=== PATIENT | female | born 1955 | race Caucasian/White ===

== ENCOUNTER → 2023-11-29 12:34 | Outpatient (CLI) | payer MEDICARE, OTHER, SELFPAY ==
--- NOTE | 2023-11-29 12:38 | DI.NM.S_ITS ---
PROCEDURE: NM LILY PERF SPECT R&S PHARM Rest and pharmacological stress myocardial perfusion SPECT with gated imaging and ejection fraction RADIOPHARMACEUTICAL: 26.5 mCi Tc-99m tetrafosmin IV at rest and 26.7 mCi Tc-99m tetrafosmin IV at peak effect of pharmacological stress. Sff-jhn-wcrbwfyx was performed. INDICATIONS: Bradycardia, unspecified TECHNIQUE: Radiopharmaceutical was injected at peak stress test, and also at rest. SPECT images were obtained. SPECT myocardial perfusion images were displayed in short axis, horizontal long axis, and vertical long axis views. Gated images were reviewed using Work4 software. COMPARISON: None. CARDIAC STRESS: A pharmacologic stress test was performed under the supervision of an attending staff, using an infusion of regadenoson 0.4 mg IV. Hemodynamic data: There is normal blood pressure and heart rate response to pharmacologic stress. Symptoms: The patient denied anginal chest pain. EKG: No diagnostic changes of ischemia; no ectopy. FINDINGS: Raw data: There is good myocardial uptake of radiotracer. No significant motion artifacts. Huww-gd-zihdo ratio is 0.46 (normal is less than 0.38 for tetrafosmin tracer). Left ventricle function: Gated images demonstrate normal left ventricular wall thickening. No segmental wall motion abnormalities. No transient ischemic dilation; TID is 1.09 (normal less than 1.3). Left ventricle resting end diastolic volume is 106 mL. Left ventricle stress ejection fraction is 74%; normal range is above 45%. Myocardial perfusion: There is normal distribution of activity in the right and left ventricular myocardium. No fixed or reversible perfusion defects. IMPRESSION: Low risk study. No evidence of pharmacologic induced ischemia or scar. Normal LV size and function. Dictated by: Tessa Fisher D.O. on 11/30/2023 at 16:40 Approved by: Tessa Fisher D.O. on 11/30/2023 at 16:43
--- NOTE | 2023-11-29 12:38 | DI.ECHO.S_ITS ---
[facility]---------+ [facility] +---------+ : : [address] : [place] : : : : [id number] : : : : Phone: [phone]---------+ Echocardiogram Report + + :Name: YOSEPH HAGER Study Date: 11/29/2023 Height: 64 in : :[facility] ReadingLocation: Weight: 199 lb : : Gender: Female BSA: 2.0 m2 : :: 1955 Age: 67 yrs BP: 171/84 mmHg: :Reason For Study: Bradycardia : : Performed By: Quiana Alberto : :Referring: KRISTEN FAUSTIN C : + + Interpretation Summary The ejection fraction is estimated to be 60-65%. Diastolic parameters suggest probable normal left ventricular diastolic function and normal filling pressures. The right ventricle grossly appears normal in size with probable normal systolic function. The right ventricular systolic pressure is estimated to be at least 27 mmHg based on an estimated right atrial pressure of 3 mm Hg. No significant valvular abnormality. Procedure: A two-dimensional transthoracic echocardiogram with color flow and Doppler was performed. The study quality was technically adequate. There is no prior echocardiogram noted for this patient. The heart rate ranged between 487-51 bpm during the study. Left Ventricle: The left ventricle is normal in size and wall thickness. The ejection fraction is estimated to be 60-65%. There are no obvious focal wall motion abnormalities noted but poor endocardial definition reduces the sensitivity for the detection of such. Diastolic parameters suggest probable normal left ventricular diastolic function and normal filling pressures. Right Ventricle: The right ventricle grossly appears normal in size with probable normal systolic function. Atria: Borderline left atrial enlargement. Right atrial size is normal. The interatrial septum grossly appears intact with no obvious evidence for an atrial septal defect. Mitral Valve: The mitral valve is normal in structure and function. There is no mitral regurgitation noted. Aortic Valve: The aortic valve opens well. There is no aortic valve stenosis. No aortic regurgitation is present. Tricuspid Valve: The tricuspid valve leaflets are thin and pliable. The tricuspid valve leaflets are thickened and/or calcified, but open well. No tricuspid regurgitation. The right ventricular systolic pressure is estimated to be at least 27 mmHg based on an estimated right atrial pressure of 3 mm Hg. Pulmonic Valve: The pulmonic valve is not well seen, but is grossly normal. There is a trace or physiologic amount of pulmonic regurgitation. Great Vessels: The aortic root is normal size. The ascending aorta is normal in size. The aortic arch is normal in size. The IVC is of normal diameter and collapses greater than 50% with a sniff. This suggests a low right atrial pressure of 3 mm Hg. Pericardium/ Pleura There is no pericardial effusion. There is no pleural effusion. MMode/2D Measurements & Calculations LVIDd: 5.2 cm LVOT diam: 2.0 cm LVIDs: 3.7 cm Ao root diam: 3.3 cm FS: 29.2 % asc Aorta Diam: 3.3 cm EPSS: 0.48 cm Ao Arch Diam (Prox Trans): 2.6 cm IVSd: 0.93 cm LVPWd: 0.80 cm LV sims. diameter/BSA (cm/m^2): 2.7 LV sys. diameter/BSA (cm/m^2): 1.9 LA A2 area: 22.6 cm2 RA long axis: 5.3 cm LA A4 area: 19.2 cm2 RA area: 19.7 cm2 LA length (vol): 5.2 cm RA vol: 61.8 ml LA vol: 71.0 ml RA : 31.6 ml/m2 LA vol index: 36.3 ml/m2 IVC diam: 1.6 cm RVD1 (basal): 2.1 cm Doppler Measurements & Calculations Ao V2 max: 137.2 cm/sec LVOT Max Luis: 84.9 cm/sec Ao V2 mean: 101.3 cm/sec LV V1 max P.9 mmHg Ao max P.5 mmHg LV V1 VTI: 22.5 cm Ao mean P.5 mmHg DEAN(I,D): 2.0 cm2 Ao V2 VTI: 36.4 cm DEAN(V,D): 2.0 cm2 sev ratio: 0.62 DEAN indexed to BSA (cm^2/m^2): 1.0 MV E max luis: 83.1 cm/sec TR max luis: 245.7 cm/sec MV A max luis: 83.1 cm/sec TR max P.1 mmHg MV E/A: 1.0 PA V2 max: 75.1 cm/sec Med Peak E' Luis: 6.5 cm/sec PA V2 mean: 54.8 cm/sec E/E' med: 12.7 PA mean P.3 mmHg Lat Peak E' Luis: 7.6 cm/sec PA pr(Accel): -16.9 mmHg E/E' lat: 11.0 E/e' average: 11.9 MV dec time: 0.24 sec SV(LVOT): 73.4 ml Reading Physician:JAI
== END ==
PROVIDERS: Referring Provider Physician Assistant; Visit Provider Physician Assistant
DX: R00.1 Bradycardia, unspecified (principal); R94.31 Abnormal electrocardiogram [ECG] [EKG]; M17.11 Unilateral primary osteoarthritis, right knee; Z82.49 Family history of ischemic heart disease and other diseases of the circulatory system
CPT/HCPCS: 78452; 93017; 93306; A9502; J2785

== ENCOUNTER → 2025-03-03 12:58 | Outpatient (CLI) | payer MEDICARE, OTHER, SELFPAY ==
--- NOTE | 2025-03-03 13:00 | DI.MG.S_ITS ---
MM screening mammo BI: 03/03/2025. BI-RADS: 1 CLINICAL: 69-year old female for bilateral screening mammogram. Tyrer-Cuzick lifetime risk of 6.8%. No personal or first-degree family history of breast cancer. PRIOR EXAMS Outside priors 12/04/2015. MAMMOGRAPHY TECHNIQUE: 2D and 3D (tomosynthesis) digital mammographic views obtained, with additional images as needed for full coverage. Current study was also evaluated with a Computer Aided Detection (CAD) system. DENSITY B. There are scattered areas of fibroglandular density. MAMMOGRAPHY FINDINGS Bilateral: No suspicious mass, asymmetry, microcalcification, or other abnormality seen. IMPRESSION: * No evidence of malignancy. RECOMMENDATIONS Bilateral * Annual screening mammography. OVERALL ASSESSMENT CATEGORY BI-RADS-1: Negative. The [employer] recommends annual screening mammography beginning at age 40 for women with average risk of breast cancer. ELECTRONICALLY SIGNED: Zan Shen M.D. on 03/05/2025 at 10:50:13 AM PT Interpreting Station ID: [id number]
== END ==
PROVIDERS: PCP Family Medicine; Referring Provider Family Medicine; Visit Provider Family Medicine
DX: Z12.31 Encounter for screening mammogram for malignant neoplasm of breast (principal)
CPT/HCPCS: 77063; 77067

== ENCOUNTER 2025-08-16 07:48 | Day surgery (SDC) | payer MEDICARE, OTHER, SELFPAY ==
[2025-08-16 07:58] VITALS: BP 157/77; PULSE 55; RESP 20; TEMP 36.2; O2SAT 96
[2025-08-16] MEDS: LACTATED RINGERS 1,000 ML 42 ML IV (07:58)
--- NOTE | 2025-08-16 08:06 | P.HP_ITS ---
History of Present Illness History of Present Illness Date Patient Seen: 08/16/25 Time Patient Seen: 08:06 Chief complaint: SDC Narrative: Latanya is a 69-year-old woman here for a colonoscopy. Her last colonoscopy was about 12 years ago and was normal. No family history of colon cancer. [facility], LAT[facility] Medical History (Updated 08/16/25 @ 08:07 by Cory Cassidy MD) Snoring Insomnia Social History Smoking Status: Never smoker alcohol intake: never Meds Home Medications and Allergies Home Medications ?Medication ?Instructions ?Recorded ?Confirmed ?Type Respironics Dreamstation CPAP #1 ea 07/04/19 10/20/22 History citalopram 20 mg tablet 20 mg PO DAILY 08/16/2501/09 History lisinopril 10 mg tablet 10 mg PO DAILY 08/16/2501/09 History Allergies Allergy/AdvReac Type Severity Reaction Status Date / Time No Known Drug Allergies Allergy Unverified 10/20/22 10:51 Exam Vital Signs (past 8 hours): - 08/16/25 07:58 Temperature 97.2 F L Pulse Rate 55 L Respiratory Rate 20 Blood Pressure 157/77 H Pulse Oximetry 96 Oxygen Delivery Method Room Air Oxygen Delivery Method Room Air Const General: healthy appearing Assessment & Plan Assessment and plan (1) Colon cancer screening: Status: Acute Plan Colonoscopy Time-Based Coding :: [TOTAL MINUTES] spent with patient and on the chart (including review of chart, obtaining history, exam, reviewing outside data, placing orders, documenting exam and treatment plan, and counseling patient) on [DATE]. PROFEE Residential Child Care Counselor Document charge(s): No
[2025-08-16 08:39] VITALS: BP 136/74; PULSE 60; RESP 14; TEMP 36.3; O2SAT 97
--- NOTE | 2025-08-16 08:40 | PM.OP.COLON ---
Operative Date/Time/Diagnoses Date of procedure: 08/16/25 Time of procedure: 08:40 Pre-op diagnosis: Colon cancer screening Post-op diagnosis: same Procedure & Clinicians Study performed: Colonoscopy Same procedure(s) as scheduled: Yes Surgeon: Cory Cassidy Anesthesia Type: MAC +/- Procedure Notes Procedure in detail: Surgeon: Cory Cassidy MD Anesthesia: Michelle Luis CRNA Procedure: The patient was brought to the endoscopy suite, placed in left lateral decubitus position. The patient was connected to monitoring devices. A time-out was performed. Sedation was administered. Once the patient was adequately sedated, a digital rectal exam was performed and was normal. The scope was then inserted and advanced to the cecum where the appendiceal orifice was identified and photographed. The scope was then slowly withdrawn over greater than 6 minutes. The mucosa was thoroughly inspected. No abnormalities were found. The scope was retroflexed in the rectum. The scope was straightened and removed. The patient was awakened and brought to recovery. Scope withdrawal time: 11 minutes Sedation time: 15 minutes EBL: 0 Findings: Normal colon Post-procedure Recommendations: Colonoscopy in 10 years Disposition: PACU
[2025-08-16 08:44] VITALS: BP 132/79; PULSE 53; RESP 21; O2SAT 96
[2025-08-16 08:48] VITALS: BP 136/79; PULSE 55; RESP 18; O2SAT 97
[2025-08-16 08:52] VITALS: BP 160/72; PULSE 52; RESP 16; TEMP 36.1; O2SAT 96
== END 2025-08-16 09:15 | disposition home or self-care (01) ==
PROVIDERS: PCP Family Medicine; Referring Provider Family Medicine; Visit Provider Surgery
PROC: 0DJD8ZZ Inspection of Lower Intestinal Tract, Via Natural or Artificial Opening Endoscopic (ICD-10-PCS; CPT 45378; principal; 2025-08-16 08:45)
DX: Z12.11 Encounter for screening for malignant neoplasm of colon (principal)
CPT/HCPCS: G0121; J2704